=== PATIENT | male | born 1965 | race Caucasian/White ===

== ENCOUNTER 2023-08-30 08:49 | Emergency (ER) | payer OTHER ==
[~2023-08-30] VITALS: Ht 188 cm; Wt 106.8 kg
[2023-08-30 08:52] VITALS: BP 152/76; PULSE 66; RESP 16; TEMP 98
== END 2023-08-30 09:51 | disposition home or self-care (01) ==
LOC: EMS 08:49
DX: R00.2 Palpitations (principal)
CPT/HCPCS: 93005; 99283